=== PATIENT | male | born 1965 | race Caucasian/White ===

== ENCOUNTER 2016-11-26 17:10 | Observation (INO) | payer OTHER ==
[~2016-11-26] VITALS: Ht 170.2 cm; Wt 109.5 kg
[~2016-11-26 17:10] MED LIST: MELOXICAM15 MG PO; PERCOCET1 TA1 PO; PRAVASTATIN SOD40 MG PO
--- NOTE | 2016-11-26 19:30 | DIAGNOSTIC IMAGING REPORT ---
PROCEDURE: CT PELVIS WITH CONTRAST INDICATION: Left buttock pain, initial encounter TECHNIQUE: Axial scans with 125 ml Isovue 300 at intravenously. Coronal and sagittal re-formations. COMPARISON: CT pelvis 07/16/2016 FINDINGS: Minor infiltration of the left buttock subcutaneous fat medially. There is a 2 x 1 cm right perirectal cystic mass with inflammatory changes extending posteromedially to the midline subcutaneous tissues. No evidence of soft tissue gas. Normal prostate and bladder. Normal appendix. No pelvic mass or free fluid. Bilateral L5 spondylolysis. IMPRESSION: 1. 1 x 2 cm a right perirectal cystic mass consistent with a small abscess with inflammatory changes extending posteromedially to the subcutaneous tissues 2. Mild medial left buttock subcutaneous inflammatory changes suggestive of cellulitis 3. Results discussed with Dr. Reeves and Dr. Kraus
--- NOTE | 2016-11-26 19:53 | Progress Note ---
Subjective General Sherron rectal abscess in 51 y.o healthy male who had prior episode with necrotizing fascitis. Admitted for abx, surgery eval and treatment.- Full note dictated
[2016-11-26 20:35] VITALS: BP 146/88
--- NOTE | 2016-11-26 21:11 | HISTORY AND PHYSICAL ---
ADMITTED: 11/26/2016 CHIEF COMPLAINT: 1. Pain in the buttocks HISTORY OF PRESENT ILLNESS: The patient has had a tender, swollen lump in his buttock, more on the right side. He previously had a necrotizing fasciitis of his left buttock, nearly of this in last July, now with similar symptoms of swelling and pain in his bottom. He is presenting to clinic for further evaluation. MEDICAL/SURGICAL HISTORY: Past medical history: He has generally been healthy, other than this. He has had some knee pain, bronchitis, disk disease L4-L5, some sciatica, shoulder impingement, muscle spasms, low back pain. Past surgical history: Abscess treatment last fall, as well as right knee surgery. MEDICATIONS: 1. None. ALLERGIES: 1. NONE. SOCIAL HISTORY: He is , 3 children. Works at [employer]. Denies drug use. He drinks a little bit of beer. FAMILY HISTORY: Mom had a heart attack, CABG x3 and at age 53. Father at age 72 of lung failure, also prostate issues. REVIEW OF SYSTEMS: He states that he has no fevers, no chills and no loss of appetite. He has got this buttock pain. No nausea, vomiting, diarrhea. No chest pain or shortness of breath. PHYSICAL EXAMINATION: GENERAL: He is an alert male who appears to be in no apparent distress. HEENT: Extraocular movements intact. Pupils equal, round, reactive to light. Oropharynx is clear with moist mucous membranes. NECK: Supple without lymphadenopathy. LUNGS: Clear to auscultation bilaterally. HEART: Regular rate and rhythm, no murmur. ABDOMEN: Soft, obese, nontender, nondistended. EXTREMITIES: No edema. No sores. RECTAL: There is a roughly 3-4 cm x 3 cm area of redness and induration. There also appears to be a red rash in his perineal crease. This indurated area is mildly tender, nonfluctuant, nor is there any draining or abscess, but definitely it is more indurated tissue. LAB/IMAGING: Imaging: The patient was sent to the hospital for imaging, which showed a CT of pelvis. There is a 1 x 2 cm right perirectal cystic mass consistent with a small abscess , inflammatory changes in the posteromedial aspect of the subcutaneous tissues, mild left buttocks subcutaneous inflammatory aesthetic changes suggestive of cellulitis. ASSESSMENT: 1. Perirectal abscess. PLAN: I have discussed the case with Dr. Kraus as the patient had such a severe case last time and with similar issues. At this point, he would like the patient admitted where he will consult and I will treat him with antibiotics, ceftriaxone and Bactrim at this time. Anticipate the patient will be going to the operating room for drainage by Dr. Kraus tomorrow. His code status is FULL CODE. Plan: Admission for IV antibiotics. Consultation for surgery. We will check on laboratories.
[2016-11-26 23:01] VITALS: BP 149/82
[2016-11-27] VITALS (10 sets, daily range): BP systolic 110–137; BP diastolic 68–85
--- NOTE | 2016-11-27 07:14 | Progress Note ---
Subjective General Patient states that he is feeling ok. Has no sig pain. No fevers, sob, bleeding. Physical Exam Vital Signs / I&Os Vital Signs Date Time Temp Pulse Resp B/P Pulse O2 O2 Flow FiO2 Ox Delivery Rate 11/27 0225 98.1 72 16 137/70 97 Room Air 11/26 2301 98.1 72 16 149/82 100 Room Air 11/26 2035 97.3 86 14 146/88 100 Room Air I&O 11/27 0000 11/26 1600 11/26 0800 Intake Total Output Total 400 Balance -400 General Appearance Alert, Cooperative HEENT Normal exam Lungs Clear to auscultation, Normal air movement Cardiovascular Regular rate and rhythm Abdomen Soft, No tenderness Extremities No edema LAB Results Laboratory Tests 11/27 11/26 11/26 0614 1941 1752 Chemistry Plasma Sodium (136 - 145 mmol/L) Cancelled 139 Plasma Potassium (3.5 - 5.1 mmol/L) Cancelled 4.4 Plasma Chloride (98 - 107 mmol/L) Cancelled 103 CO2 (Enzymatic) (21 - 32 mmol/L) Cancelled 26 BUN (7 - 18 mg/dL) Cancelled 17 Creatinine (0.6 - 1.3 mg/dL) Cancelled 1.4 Est GFR ( Amer) (mL/min) Cancelled >60 Est GFR (Non-Af Amer) (mL/min) Cancelled 56.56 Glucose (70 - 110 mg/dL) Cancelled 93 Plasma Calcium (8.5 - 10.1 mg/dL) Cancelled 9.1 Total Bilirubin (0.0 - 1.0 mg/dL) Cancelled 0.4 AST (15 - 37 U/L) Cancelled 26 ALT (12 - 78 U/L) Cancelled 43 Alkaline Phosphatase (46 - 116 U/L) Cancelled 77 Total Protein (6.4 - 8.2 g/dL) Cancelled 8.1 Albumin (3.3 - 5.0 g/dL) Cancelled 4.1 Hematology WBC (4.5 - 11.5 K/uL) 5.9 Cancelled 8.8 RBC (4.50 - 5.90 M/uL) 5.45 Cancelled 5.48 Hgb (13.5 - 17.5 gm/dL) 15.3 Cancelled 15.5 Hct (41.0 - 53.0 %) 46.3 Cancelled 46.6 MCV (80 - 100 fL) 85 Cancelled 85 MCH (26 - 34 pg) 28 Cancelled 28 RDW (11.6 - 14.8 %) 13.5 Cancelled 13.0 Neut % (Auto) (50 - 75 %) 45.4 66.5 Lymph % (Auto) (25 - 40 %) 37.7 24.2 [place] % (Auto) (3 - 14 %) 9.4 5.0 Eos % (Auto) (0 - 4 %) 7.0 3.9 Baso % (Auto) (0 - 2 %) 0.5 0.4 Plt Count, EDTA (150 - 400 K/uL) 253 Cancelled 241 PUBS MCHC (31 - 37 g/dL) 33 Cancelled 33 Assessment and Plan Problem List 1. Perirectal abscess Plan Patient with abscess that is going to surgery today. Likely d/c post if ok with Dr. Soares.
--- NOTE | 2016-11-27 13:50 | CONSULTATION REPORT ---
DATE OF CONSULTATION: 11/27/2016 CHIEF COMPLAINT: 1. Buttock pain HISTORY OF PRESENT ILLNESS: The patient is a 51-year-old man who presented to Dr. Reeves's office with new onset of pain in the anterior buttock region. In 2015, the patient had a perirectal abscess which turned into a necrotizing fasciitis with gas in the tissues. He required multiple surgeries and debridements, but healed up. Since that time, he has been doing well until this latest problem, which seems to be occurring on the opposite side of the anus. He denies fever and chills and systemic symptoms, other than localized tenderness near the anus. He had a CT scan ordered by Dr. Reeves which demonstrates an abscess, 1 x 2 cm, in the right perirectal space. He reports no other stool changes. No diarrhea, constipation, hematochezia. He believes he may have had some ongoing drainage in this area, suggesting the possibility of a fistula. MEDICAL/SURGICAL HISTORY: Musculoskeletal problems, including L4-L5 disk disease and sciatica, knee pains, bronchitis, shoulder impingement, and low back pain. Past surgeries: Incision and debridement and drainage of a necrotizing perirectal abscess and previous right knee surgery. MEDICATIONS: 1. None. ALLERGIES: 1. NONE. SOCIAL HISTORY: The patient works at [employer]. He drinks less than 1 drink per day. He does not smoke cigarettes. He is with 3 children. FAMILY HISTORY: His mother had a [place] and atherosclerotic disease and at age 53. Father, age 72, from lung failure. REVIEW OF SYSTEMS: A multipoint review of systems was obtained. The patient reports no fever, chills, loss of appetite or unexpected weight loss. He has had no shortness of breath, productive cough or hemoptysis. He reports no palpitations, chest pain. He has had no other GI disturbances. No hematochezia or vomiting. He reports no new extremity problems other than ones he previously had. There have been no eye sight problems, hearing problems are sinusitis. PHYSICAL EXAMINATION: GENERAL: The patient is alert and cooperative. His sensorium is normal. He is oriented to time and place, and answered questions appropriately. His facial muscles work normally. Cranial nerves are all intact. NECK: Without palpable masses or thyromegaly. CHEST: Clear to auscultation. HEART: Regular, without murmur or gallop. ABDOMEN: Reveals no localized areas of tenderness. Bowel sounds are active. He does not have ascites or hepatosplenomegaly. RECTAL: The perianal area is examined. There is some moisture in this area, though I was unable to be definitively see a fistulous opening. On the left side, there is a curved and healed scar, but without erythema or infection in this area. On the right side, anterior to the anus, there is an indurated, tender area which extends radially up toward the anus. EXTREMITIES: His extremities are symmetric. He moves without restriction. IMPRESSION: 1. New perianal abscess PLAN: I recommended the patient be taken to surgery to undergo incision, drainage and debridement. He is made aware that there is a risk ultimately of an anal fistula which is pretty significant and that a later procedure, such as a fistulotomy or other fistulous type surgery, may prove to be necessary to try to finally resolve his problem. The patient is aware of the nature of these diseases, as he has had them before, as well as the potential risks, with the fact that he already has infection as well as the risks of bleeding, pain, damage to local structures, incontinence, and subsequent need for additional surgery.
--- NOTE | 2016-11-27 13:57 | OPERATIVE REPORT ---
DATE OF SURGERY: 11/27/2016 SURGEON: Zain Kraus MD PREOPERATIVE DIAGNOSES: 1. Right perianal abscess 2. Possible anal fistula POSTOPERATIVE DIAGNOSES: 1. Right perianal abscess 2. Chronic left anal fistula PROCEDURE PERFORMED: 1. Incision, drainage, and debridement of perianal abscess with placement of seton x2 ANESTHESIA: General. INDICATIONS: The patient is a 51-year-old man who last year had a necrotizing infection on the left side of his anus, treated with multiple surgeries and debridements, resulting in resolution. He reports that since it resolved, he developed a small draining site in that area. He now presents with a hard, tender mass on the other side of the anus, and CT scan showed evidence of an abscess. SURGICAL TECHNIQUE: The patient was taken to surgery where a general anesthetic was administered and the patient placed in high lithotomy position. Exam under anesthesia demonstrated a fistula opening in the old scar tissue on the left side of the anus, and when this was probed it clearly led to the posterior midline where there was a fairly good sized cavity of granulation tissue. This was then contiguous with the right -sided abscess. Both of these were unroofed by removing elliptical sections of skin and opening them up further to allow further exploration. These communicated with good sized cavity and were all part of the one continues process that communicated with the posterior midline crypt. Due to the complex nature of this, a definitive fistulotomy was not done for fear of incontinence. Instead, both sites were cleaned up by unroofing the surface, removing excess scar tissue and using a curette to clean out all the loose granulation tissue. Following this, 2 setons were placed, one toward the right and one toward the left and both going through the same crypt in the posterior midline. The soft tissue defects were packed with plain gauze soaked in local anesthetic. Absorbent dressings were placed, and the patient left in good condition. No intraoperative complications were encountered.
[2016-11-28 02:35] VITALS: BP 117/71
[2016-11-28 06:28] VITALS: BP 117/86
--- NOTE | 2016-11-28 07:15 | Progress Note ---
Subjective General States that he is feeling well at this time. Has no fevers, cp, sob. Was in the OR and I have been told that he has a fistula and is now post op. Physical Exam Vital Signs / I&Os Vital Signs Date Time Temp Pulse Resp B/P Pulse O2 O2 Flow FiO2 Ox Delivery Rate 11/28 0628 97.7 59 16 117/86 96 Room Air 0.0 11/28 0235 98.2 61 16 117/71 97 Room Air 0.0 11/27 2241 98.4 71 18 110/68 97 Room Air 11/27 1806 98.1 81 20 137/78 97 Room Air 11/27 1551 97.9 62 20 122/82 96 Room Air 11/27 1440 97.9 54 20 122/79 95 Room Air 11/27 1414 97.7 60 18 124/83 97 Nasal 0.0 Cannula 11/27 1400 97.7 60 18 124/76 97 Nasal Cannula 11/27 1345 97.7 67 18 122/74 97 Nasal 0.0 Cannula 11/27 1328 97.7 64 18 119/68 96 Nasal 0.0 Cannula 11/27 1320 78 17 139/98 96 11/27 1315 97.9 70 15 124/83 96 11/27 1310 71 16 130/97 100 Nasal 1.0 Cannula 11/27 1305 75 19 149/99 98 Nasal 1.0 Cannula 11/27 1300 79 12 130/88 100 Nasal 3.0 Cannula 11/27 1255 84 15 104/94 98 Nasal 3.0 Cannula 11/27 1252 98.1 80 14 138/112 98 Nasal 4.0 Cannula 11/27 0730 97.9 65 18 118/85 97 Room Air I&O 11/28 0000 11/27 1600 11/27 0800 Intake Total 125 960 835 Output Total 800 800 800 Balance -675 160 35 General Appearance Alert, Cooperative HEENT Normal exam Lungs Clear to auscultation, Normal air movement Cardiovascular Regular rate and rhythm, Normal S1 and S2 Abdomen Soft, No tenderness Extremities No edema Assessment and Plan Problem List 1. Perirectal abscess Plan Post op and doing well. Further care and plan per surgery. D/c home at htis time.
[2016-11-28] MEDS ORDERED: SMZ-TMP DS1 TAB PO (07:52)
--- NOTE | 2016-11-28 07:52 | Provider's Discharge Care Plan ---
Problem, Goal, Plan Problem List 1. Perirectal abscess Instructions: Take meds as directed, f/u Dr Soares as indicated
--- NOTE | 2016-11-28 07:52 | Provider's Discharge Care Plan ---
Problem, Goal, Plan Problem List 1. Perirectal abscess Instructions: Take meds as directed, f/u Dr Soares as indicated
== END 2016-11-28 12:00 | disposition home or self-care (01) ==
LOC: CT SRH 17:10 → ACUTE2 SRH 19:45
PROVIDERS: Surgery; ADMIT Family Medicine
PROC: 0D9Q00Z Drainage of Anus with Drainage Device, Open Approach (ICD-10-PCS; principal; 2016-11-27 12:00)
DX: K61.2 Anorectal abscess (principal); Z87.39 Personal history of other diseases of the musculoskeletal system and connective tissue
CPT/HCPCS: 29229; 29230; 29231; 50004; 60001; 70002; 80102; 80212; 80852; 81631; 90074; 90100; 95059

== ENCOUNTER 2017-01-16 07:10 | Day surgery (SDC) | payer OTHER ==
[~2017-01-16 07:10] MED LIST changes: +SMZ-TMP DS1 TAB PO
[2017-01-16] MEDS ORDERED: PERCOCET1 TA1 PO (09:35)
[2017-01-16] MEDS ORDERED: DOCUSATE SODIU250 MG PO (09:36)
[2017-01-16] MEDS ORDERED: METAMUCIL48.57 % PO (09:37)
[2017-01-16 10:38] VITALS: BP 129/89
--- NOTE | 2017-01-16 11:01 | OPERATIVE REPORT ---
DATE OF SURGERY: 01/16/2017 SURGEON: Zain Kraus MD PREOPERATIVE DIAGNOSIS: 1. Anal fistula. POSTOPERATIVE DIAGNOSIS: 1. Anal fistula (complex) PROCEDURE PERFORMED: 1. Anal fistula plug placement and seton replacement ANESTHESIA: General. INDICATIONS: The patient is a 51-year-old man with a complex anal fistula. He has a history of a previous necrotizing perianal infection, which then progressed to an anal fistula, treated with draining seton placements 3 months ago. The patient was found to have 2 fistula tracts, one going in each direction, originating from a posterior midline crypt and originating fairly high up above the sphincter mechanism. SURGICAL TECHNIQUE: The patient was taken to the operating room, where a general anesthetic was administered and the patient was placed in prone jackknife position with buttock tapes. Exploration revealed both draining setons were in place, but continued to remain in a fairly high suprasphincteric position. The right-sided one was a much shorter tract. This was first approached. The overlying mucosa was cut down in hopes that the fistulous tract would be transsphincteric. However, it still seemed to be loop up quite high and encompassed most of the muscular sphincter. Due to the involvement of muscular sphincter and the lack of fibrosis, at this point I decided to place a cutting seton on this side in order to try to get this tract to take care of itself. A 0 silk was tied down tightly onto the sphincter muscle and the ends left long. The overlying mucosa and tissues were divided, providing excellent drainage to this area. On the left side, the fistula tract was quite long and went almost anterior to the mid axis of the anus. It also tracked back to the same originating site. A fistula plug system was used. The fistula brush was first passed through the fistula and used to scrub it. Flushing was done, following which the same brush mechanism was used to pull the fistula plug into place. The internal button was sewn onto the rectal mucosa using interrupted 3-0 Vicryl sutures. The tip of the fistula plug just reached the external opening. Note that 0.5% Marcaine with epinephrine was used for both local anesthesia and for inferior hemorrhoidal block. Rectal packs were removed. The patient left in good condition. He will be instructed to take regular sitz baths and to use bulking agents. It is anticipated that a subsequent secondary procedure on the right side may be necessary, and that there is also a fairly high likelihood of recurrence on the left side, despite the use of a plug; however, this seems to be the least morbid procedure available to him now. Note, the internal opening was somewhat complex and irregular and did not lend itself well to a flap closure.
--- NOTE | 2017-01-16 11:04 | Provider's Discharge Care Plan ---
Problem, Goal, Plan Problem List 1. Anal fistula
--- NOTE | 2017-01-16 11:04 | Provider's Discharge Care Plan ---
Problem, Goal, Plan Problem List 1. Anal fistula
== END 2017-01-16 11:22 | disposition home or self-care (01) ==
LOC: OR SRH 07:10 → SCU SRH 07:12 → OR SRH 09:00
PROVIDERS: Surgery
PROC: 0DBQ0ZZ Excision of Anus, Open Approach (ICD-10-PCS; principal; 2017-01-16 09:00)
PROC: 0DQP0ZZ Repair Rectum, Open Approach (ICD-10-PCS; principal; 2017-01-16 09:00)
PROC: 0DQQ0ZZ Repair Anus, Open Approach (ICD-10-PCS; principal; 2017-01-16 09:00)
DX: K60.3 Anal fistula (principal)
CPT/HCPCS: 29229; 29240; 50004; 60001; 70002; 80102; 80212; 82281; 84038; 84527; 85607; 90074; 95059

== ENCOUNTER 2017-03-20 11:41 | Day surgery (SDC) | payer OTHER ==
[~2017-03-20] VITALS: Ht 170.2 cm; Wt 107.5 kg
[~2017-03-20 11:41] MED LIST changes: +DOCUSATE SODIU250 MG PO; +METAMUCIL48.57 % PO
[2017-03-20] MEDS ORDERED: NORCO1 TA1 PO (15:18)
--- NOTE | 2017-03-20 15:19 | Provider's Discharge Care Plan ---
Problem, Goal, Plan Problem List 1. Anal fistula
--- NOTE | 2017-03-20 15:19 | Provider's Discharge Care Plan ---
Problem, Goal, Plan Problem List 1. Anal fistula
--- NOTE | 2017-03-20 15:53 | OPERATIVE REPORT ---
DATE OF SURGERY: 03/20/2017 SURGEON: Zain Kraus MD PREOPERATIVE DIAGNOSIS: 1. Complex anal fistula POSTOPERATIVE DIAGNOSIS: 1. Anal fistula PROCEDURE PERFORMED: 1. Anal fistulotomy ANESTHESIA: General. INDICATIONS: The patient is a 51-year-old man who initially presented with necrotizing fasciitis secondary to a perianal abscess. This patient has had a series of procedures and had draining fistulas coming from the posterior midline to both sides. The left side was treated with a collagen plug and so far seems to have healed up, while the right side was treated with initially a draining seton and switched to a cutting seton. He returns at this time for completion of fistulotomy. SURGICAL TECHNIQUE: The patient was taken to the operating room, where a general anesthetic was administered and the patient was placed in prone jackknife position with buttock tapes. A sterile prep and drape was done. An inferior hemorrhoidal block of 0.25% Marcaine with epinephrine was performed. A Petty bivalve speculum was inserted. The silk seton was still in place and fairly fibrotic in this area, with some draining pus and granulation tissue around the seton. The seton had worked its way out a fair ways and was now fairly loose and no longer encircled the entire sphincter complex. There was also a commensurate amount of fibrosis. Cautery was used to divide the fibrotic tissue contained within the seton, exposing the underlying fistula tract. This was curetted out as it contained several pockets of loose granulation tissue around it, completely cleaned. The wound was hemostatic. Local anesthetic was instilled and absorbent dressings were placed. The patient left in good condition and will be instructed to perform sitz baths and use bulking agents.
[2017-03-20 17:54] VITALS: BP 132/91
== END 2017-03-20 19:22 | disposition home or self-care (01) ==
LOC: OR SRH 11:41 → SCU SRH 11:42 → OR SRH 13:30
PROVIDERS: Surgery
PROC: 0DBQ0ZZ Excision of Anus, Open Approach (ICD-10-PCS; principal; 2017-03-20 13:30)
DX: K60.3 Anal fistula (principal)
CPT/HCPCS: 29229; 29240; 50004; 60001; 70002; 80102; 83432